=== PATIENT | female | born 1945 | race Caucasian/White ===

== ENCOUNTER 2018-03-04 06:00 | Day surgery (SDC) | payer MEDICARE ==
[~2018-03-04] VITALS: Ht 177.8 cm; Wt 80.7 kg
[2018-03-04] VITALS (12 sets, daily range): BP systolic 117–141; BP diastolic 49–74
[~2018-03-04 06:00] MED LIST: ASPI-555 PO; BIOT5000 PO; CA C1TAB95 PO; CLOB15CR5 TP; CYCL30DR OP; ESTR1VAG VG; IBUP-2353 PO; LEVO100T12 PO; LOSA1TAB12 PO; METO25TA6 PO; MV-M1TAB20 PO; OMEG-116 PO; POTA99TA25 PO; RANI150T7 PO; VITA400T7 PO
[2018-03-04] MEDS ORDERED: SODIUM CHLORIDE 0.9% 1000ML 1,000 ML IV ONE (08:02)
[2018-03-04] MEDS ORDERED: PROPOFOL 10 MG/ML 20ML VIAL IV ONE (08:11)
[2018-03-04] MEDS ORDERED: FENTANYL CITRATE PF 50 MCG/1 ML 2ML VIAL ONE (08:26)
[2018-03-04] MEDS ORDERED: GLYCOPYRROLATE 0.2 MG/ML 5 ML VIAL ONE (08:26)
[2018-03-04] MEDS ORDERED: LEVOFLOXACIN 500 MG/D5W 100 ML 100 ML ONE (08:56)
== END 2018-03-04 09:30 | disposition home or self-care (01) ==
LOC: ENDO 06:00 → DAH 06:00 → ENDO 09:30
PROVIDERS: ATTEND Internal Medicine
DX: K86.2 Cyst of pancreas (principal); K31.89 Other diseases of stomach and duodenum; I10 Essential (primary) hypertension; E78.5 Hyperlipidemia, unspecified; E03.9 Hypothyroidism, unspecified; M81.0 Age-related osteoporosis without current pathological fracture; M19.90 Unspecified osteoarthritis, unspecified site; G47.30 Sleep apnea, unspecified; Z98.890 Other specified postprocedural states; Z98.51 Tubal ligation status; Z79.899 Other long term (current) drug therapy; Z88.8 Allergy status to other drugs, medicaments and biological substances
CPT/HCPCS: 43238; 88173; 88305; 93005; A4215; A4606; J1956; J2704; J3010; J3490; J7030; 36415; 43242; 82378

== ENCOUNTER → 2018-03-13 | Outpatient (CLI) | payer MEDICARE, OTHER ==
[~2018-03-13] MED LIST changes: +GADODIAMIDE 10 MMOL/20 ML ML IV ONE
== END | disposition home or self-care (01) ==
LOC: RAH 08:43
PROVIDERS: ATTEND Internal Medicine
DX: K86.2 Cyst of pancreas (principal); N28.1 Cyst of kidney, acquired
CPT/HCPCS: 74183; A9579

== ENCOUNTER → 2019-02-24 | Outpatient (CLI) | payer MEDICARE ==
[~2019-02-24] MED LIST changes: -GADODIAMIDE 10 MMOL/20 ML ML IV ONE; +GADODIAMIDE 10 MMOL/20 ML VIAL IV ONE; -IBUP-2353 PO; +IBUP-2784 PO
== END | disposition home or self-care (01) ==
LOC: RAH 10:55
PROVIDERS: ATTEND Internal Medicine Gastroenterology
DX: K86.2 Cyst of pancreas (principal); Z90.49 Acquired absence of other specified parts of digestive tract
CPT/HCPCS: 74183; A9579